=== PATIENT | female | born 1945 | race Caucasian/White ===

== ENCOUNTER 2016-05-29 12:38 | Inpatient (IN) | payer MEDICARE ==
[2016-05-29] MEDS ORDERED: SODIUM CHLORIDE 0.9% 1,000 ML IV STA (14:37)
[2016-05-29] MEDS ORDERED: methylPREDNISolone SOD SUCCI 125 MG/2 ML VIAL IV STA (14:37)
[2016-05-29] MEDS ORDERED: IPRATROPIUM-ALBUTEROL 3 ML NEB INHALATION STA (14:37)
--- NOTE | 2016-05-29 15:33 | ED ---
SOB HPI - General Chief Complaint: Shortness of Breath Stated Complaint: SOB Time Seen by Provider: 05/29/16 14:21 Source: patient Mode of arrival: wheelchair Limitations: no limitations - History of Present Illness Initial Comments: Patient is a 70-year-old female with history of tobacco abuse presenting with shortness of breath. Patient states she's been having cough, congestion or shortness of breath for the past few days. Patient states it started with a runny nose over the past month. Patient has not been told she has asthma or COPD. Patient does not have any breathing treatments or steroids that she's been trying. Patient denies any recent antibiotics. 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 She denies report of flu at facility. Patient denies her flu vaccination. Patient admits to having her pneumonia vaccination. Patient denies fever, chills, chest pain, nausea, vomiting or diarrhea. - Related Data Home Medications Medication Instructions Recorded Confirmed Pravastatin Sodium [Pravachol] 40 mg PO DAILY 03/29/15 05/29/16 Lisinopril [Zestril] 2.5 mg PO DAILY 05/29/16 05/29/16 Naproxen 500 mg PO AC-BID 05/29/16 05/29/16 Sertraline [Zoloft] 50 mg PO DAILY 05/29/16 05/29/16 guaiFENesin [Mucinex] 600 mg PO Q12H PRN 05/29/16 05/29/16 Allergies Allergy/AdvReac Type Severity Reaction Status Date / Time No Known Allergies Allergy Verified 05/29/16 14:32 Review of Systems ROS Statement: Those systems with pertinent positive or pertinent negative responses have been documented in the HPI. Constitutional: No fever and no chills. HENT: +congestion, +rhinorrhea and no sore throat. Eyes: No discharge and no redness. Respiratory: +cough and +shortness of breath. Cardiovascular: No chest pain and no palpitations. Gastrointestinal: No nausea, no vomiting, no abdominal pain and no diarrhea. Genitourinary: No dysuria and no hematuria. Musculoskeletal: No back pain and no arthralgias. Skin: No pallor and no rash. Neurological: No dizziness and No headaches. ROS Other: All systems not noted in ROS Statement are negative. Past Medical History Past Medical History: Hyperlipidemia, Hypertension Additional Past Medical History / Comment(s): sciatica History of Any Multi-Drug Resistant Organisms: None Reported Past Surgical History: Hysterectomy Past Psychological History: No Psychological Hx Reported Smoking Status: Current every day smoker Past Alcohol Use History: None Reported Past Drug Use History: None Reported General Exam - General Exam Comments Initial Comments: Constitutional: Patient appears well-developed and well-nourished. No distress. Head: Normocephalic and atraumatic. Eyes: Conjunctivae and EOM are normal. Right eye exhibits no discharge. Left eye exhibits no discharge. No scleral icterus. Neck: Normal range of motion. Neck supple. Cardiovascular: Regular rate and rhythm. No murmur heard. Pulmonary/Chest: Patient with diffuse coarse wheezing throughout with a prolonged expiration phase. No crackles appreciated. Pulse ox at bedside 90% on room air. Abdominal: Soft. No distension. There is no tenderness. There is no rebound and no guarding. Musculoskeletal: Normal range of motion. No edema or tenderness. Neurological: Patient alert and oriented to person, place, and time. Skin: Skin is warm and dry. Not diaphoretic. Nursing notes and vitals reviewed. Limitations: no limitations Course Vital Signs 05/29/16 05/29/16 05/29/16 13:14 15:05 15:21 Temperature 97.8 F Pulse Rate 104 H 78 Respiratory 20 16 17 Rate Blood Pressure 112/73 140/86 O2 Sat by Pulse 90 L 91 L Oximetry 05/29/16 05/29/16 05/29/16 15:25 15:45 17:02 Temperature Pulse Rate 72 93 Respiratory Rate Blood Pressure O2 Sat by Pulse 78 L Oximetry 05/29/16 19:01 Temperature 97.4 F L Pulse Rate 79 Respiratory 20 Rate Blood Pressure 118/60 O2 Sat by Pulse 95 Oximetry Medical Decision Making - Medical Decision Making Patient is a 70-year-old female presenting with shortness of breath, congestion , cough for several days. Patient uses one pack a day of cigarettes. Patient was treated with breathing treatments and steroids. Laboratory pulse ox after was 75% for which oxygen was applied. CBC, BMP, unremarkable. Chest x-ray shows hyperinflated lungs concerning for COPD. Patient was resting comfortably in bed. Course of stay improved on oxygen. Denies pain. Discussed physical exam and diagnostic tests with patient. Questions answered and patient is agreeable to staying in the hospital. Discussed H&P and pertinent diagnostic tests with admitting physician who agrees with plan and accepts admission of patient. - Lab Data Result diagrams: 05/29/16 15:26 05/29/16 15:26 Lab Results 05/29/16 05/29/16 05/29/16 Range/Units 15:26 15:26 15:26 WBC 9.4 (3.8-10.6) k/uL RBC 5.35 (3.80-5.40) m/uL Hgb 16.7 H (11.4-16.0) gm/dL Hct 50.4 H (34.0-46.0) % MCV 94.3 (80.0-100.0) fL MCH 31.3 (25.0-35.0) pg MCHC 33.2 (31.0-37.0) g/dL RDW 12.8 (11.5-15.5) % Plt Count 213 (150-450) k/uL Neutrophils % (Manual) 77.0 % Lymphocytes % (Manual) 20.0 % Monocytes % (Manual) 3.0 % Neutrophils # (Manual) 7.2 (1.3-7.7) k/uL Lymphocytes # (Manual) 1.9 (1.0-4.8) k/uL Monocytes # (Manual) 0.3 (0-1.0) k/uL Nucleated RBCs 0 (0-0) /100 WBC Manual Slide Review Performed Reactive Lymphocytes Present Sodium 135 L (137-145) mmol/L Potassium 4.1 (3.5-5.1) mmol/L Chloride 98 (98-107) mmol/L Carbon Dioxide 26 (22-30) mmol/L Anion Gap 11 mmol/L BUN 19 H (7-17) mg/dL Creatinine 0.57 (0.52-1.04) mg/dL Est GFR (MDRD) Af Amer >60 (>60 ml/min/1.73 sqM) Est GFR (MDRD) Non-Af >60 (>60 ml/min/1.73 sqM) Glucose 124 H (74-99) mg/dL Plasma Lactic Acid Max 1.1 (0.7-2.0) mmol/L Calcium 9.1 (8.4-10.2) mg/dL Magnesium 2.1 (1.6-2.3) mg/dL Influenza Type A RNA (Not Detectd) Influenza Type B (PCR) (Not Detectd) 05/29/16 Range/Units 15:31 WBC (3.8-10.6) k/uL RBC (3.80-5.40) m/uL Hgb (11.4-16.0) gm/dL Hct (34.0-46.0) % MCV (80.0-100.0) fL MCH (25.0-35.0) pg MCHC (31.0-37.0) g/dL RDW (11.5-15.5) % Plt Count (150-450) k/uL Neutrophils % (Manual) % Lymphocytes % (Manual) % Monocytes % (Manual) % Neutrophils # (Manual) (1.3-7.7) k/uL Lymphocytes # (Manual) (1.0-4.8) k/uL Monocytes # (Manual) (0-1.0) k/uL Nucleated RBCs (0-0) /100 WBC Manual Slide Review Reactive Lymphocytes Sodium (137-145) mmol/L Potassium (3.5-5.1) mmol/L Chloride (98-107) mmol/L Carbon Dioxide (22-30) mmol/L Anion Gap mmol/L BUN (7-17) mg/dL Creatinine (0.52-1.04) mg/dL Est GFR (MDRD) Af Amer (>60 ml/min/1.73 sqM) Est GFR (MDRD) Non-Af (>60 ml/min/1.73 sqM) Glucose (74-99) mg/dL Plasma Lactic Acid Max (0.7-2.0) mmol/L Calcium (8.4-10.2) mg/dL Magnesium (1.6-2.3) mg/dL Influenza Type A RNA Not Detected (Not Detectd) Influenza Type B (PCR) Not Detected (Not Detectd) Rate 82. NSR. No ST-T wave changes. [place] internal normal . QRS interval normal. QTc duration normal. Disposition Clinical Impression: Hypoxia Disposition: ADMITTED IP TO THIS HOSP Referrals: Sara Spencer MD [Primary Care Provider] - 1-2 days Decision to Admit Reason: Admit from EC
[2016-05-29 15:36] LABS: Aty Lym Flag Slight; CHCM 34.1; HCT 50.4 % (34.0-46.0); HDW 2.66; HGB 16.7 gm/dL (11.4-16.0); MCH 31.3 pg (25.0-35.0); MCHC 33.2 g/dL (31.0-37.0); MCV 94.3 fL (80.0-100.0); Mean Platelet Volume 7.6; RBC 5.35 m/uL (3.80-5.40); RDW 12.8 % (11.5-15.5); WBC 9.4 k/uL (3.8-10.6); WBC (Perox) 9.34
[2016-05-29 15:46] LABS: Anion Gap 11 mmol/L; Blood Urea Nitrogen 19 mg/dL (7-17); Calcium 9.1 mg/dL (8.4-10.2); Carbon Dioxide 26 mmol/L (22-30); Chloride 98 mmol/L (98-107); Glucose 124 mg/dL (74-99); Magnesium 2.1 mg/dL (1.6-2.3); Non-African American GFR(MDRD) >60 (>60 ml/min/1.73 sqM); Potassium 4.1 mmol/L (3.5-5.1); Sodium 135 mmol/L (137-145)
[2016-05-29 15:59] LABS: Add Differential Manual Differential
[2016-05-29 16:02] LABS: Nucleated Red Blood Cells 0 /100 WBC (0-0)
[2016-05-29 16:04] LABS: Manual Review Performed; Reactive Lymphocytes Present; Total Cells Counted 100
--- NOTE | 2016-05-29 16:39 | XR ---
EXAMINATION TYPE: XR chest 2V DATE OF EXAM: 05/29/2016 4:30 PM COMPARISON: 03/29/2015 HISTORY: Chest pain TECHNIQUE: Frontal and lateral views of the chest are obtained. FINDINGS: There is pulmonary hyperinflation and flattening of the diaphragm. There is coarsening of interstitial markings. There are no hilar masses. There is no pleural effusion. IMPRESSION: COPD and pulmonary fibrosis. No significant change compared to old exam. Normal heart.
[2016-05-29] MEDS ORDERED: NALOXONE 0.4 MG/ML 1 ML VIAL IV PRN (18:58)
[2016-05-29] MEDS ORDERED: SODIUM CHLORIDE 0.9% 1,000 ML IV ONE (18:58)
[2016-05-29] MEDS ORDERED: DOXYCYCLINE 100 MG in SODIUM CHLORIDE 0.9% 100 ML IVPB ONE (19:01)
[2016-05-29 20:38] VITALS: BMI 20.1
[2016-05-29] MEDS ORDERED: MELATONIN 5 MG TABLET PO SCH (22:00)
[2016-05-29] MEDS: NICOTINE 14MG/24HR PATCH TRANSDERM SCH (22:10)
[2016-05-29] MEDS: methylPREDNISolone SOD SUCCI 40 MG/ML 1 ML VIAL IV SCH (23:26)
[2016-05-29] MEDS: MELATONIN 5 MG TABLET PO PRN (23:27)
[2016-05-30] MEDS: methylPREDNISolone SOD SUCCI 40 MG/ML 1 ML VIAL IV SCH ×4 (05:37→22:47)
[2016-05-30] MEDS: IPRATROPIUM-ALBUTEROL 3 ML NEB INHALATION PRN ×3 (07:20→19:45)
[2016-05-30] MEDS: NICOTINE 14MG/24HR PATCH TRANSDERM SCH (10:34)
[2016-05-30 11:50] LABS: Glucose,Whole Blood 150 mg/dL (75-99)
[2016-05-30] MEDS ORDERED: guaiFENesin 600 MG TABLET.ER PO PRN (12:41)
--- NOTE | 2016-05-30 13:55 | P.HPIM ---
History of Present Illness H&P Date: 05/30/16 Chief Complaint: Shortness of breath Patient is a 70-year-old female who presented to [facility] emergency room with a chief complaint of worsening shortness of breath Patient was evaluated in the emergency room, preliminary diagnosis was acute exacerbation of chronic obstructive pulmonary disease She was started on IV antibiotic, IV steroids, and inhaled bronchodilators she was admitted to medical floor for further evaluation and treatment Patient has a lifelong history of smoking. She still smokes she was started on nicotine patch on admission. She denies ever being diagnosed with COPD or emphysema in the past she said she had previous episodes of bronchitis she states that she has seen Dr. Castanon rope walker in the past several years ago. Her primary care physician is Dr. Ruben Spencer. Past Medical History Past Medical History: Hyperlipidemia, Hypertension Additional Past Medical History / Comment(s): sciatica History of Any Multi-Drug Resistant Organisms: None Reported Past Surgical History: Hysterectomy Past Psychological History: No Psychological Hx Reported Smoking Status: Current every day smoker Past Alcohol Use History: None Reported Past Drug Use History: None Reported Medications and Allergies Home Medications Medication Instructions Recorded Confirmed Type Pravastatin Sodium [Pravachol] 40 mg PO DAILY 03/29/15 05/29/16 History Lisinopril [Zestril] 2.5 mg PO DAILY 05/29/16 05/29/16 History Naproxen 500 mg PO AC-BID 05/29/16 05/29/16 History Sertraline [Zoloft] 50 mg PO DAILY 05/29/16 05/29/16 History guaiFENesin [Mucinex] 600 mg PO Q12H PRN 05/29/16 05/29/16 History Allergies Allergy/AdvReac Type Severity Reaction Status Date / Time No Known Allergies Allergy Verified 05/29/16 14:32 Physical Exam Vitals: Vital Signs Temp Pulse Pulse Resp BP BP Pulse Ox 05/30/16 11:25 76 05/30/16 11:13 76 05/30/16 08:00 67 16 05/30/16 07:36 70 05/30/16 07:21 66 95 05/30/16 07:00 97.6 F 67 16 138/72 96 05/29/16 22:21 98 F 73 16 107/65 95 05/29/16 20:26 97 F L 88 17 122/75 94 L 05/29/16 19:01 97.4 F L 79 20 118/60 95 Intake and Output 05/29/16 05/30/16 05/30/16 22:59 06:59 14:59 Intake Total 50 600 240 Balance 50 600 240 Intake: Intake, IV Titration 50 450 Amount Doxycycline 100 mg In 100 Sodium Chloride 0.9% 100 ml @ 100 mls/hr IVPB ONCE ONE Rx#:[id number] Sodium Chloride 0.9% 1, 50 350 000 ml @ 50 mls/hr IV . Q20H ONE Rx#:[id number] Oral 150 240 Other: # Voids 1 1 Weight 49.895 kg 49.895 kg Patient Weight 05/31/16 06:59 Weight 49.895 kg In general patient is alert and oriented 3 in no apparent distress HEENT head normocephalic and atraumatic Neck is supple no JVD no goiter no lymphadenopathy Chest exam reveals a few scattered crackles with mild wheezing, there is prolongation in expiratory phase Cardiac exam reveals regular heart sounds S1 and S2 no gallops no murmurs Abdomen is soft nontender no organomegaly Extremity exam reveals no edema no cyanosis or clubbing Neurological examination reveals no gross focal deficits Results CBC & Chem 7: 05/29/16 15:26 05/29/16 15:26 Labs: Abnormal Lab Results - Last 24 Hours (Table) 05/30/16 Range/Units 11:48 POC Glucose (mg/dL) 150 H (75-99) mg/dL Thrombosis Risk Factor Assmnt - Choose All That Apply Each Factor Represents 1 point: Abnormal pulmonary function (COPD) Each Risk Factor Represents 2 Points: Age 61-74 years Thrombosis Risk Factor Assessment Total Risk Factor Score: 3 Thrombosis Risk Factor Assessment Level: Moderate Risk Assessment and Plan Plan: #1 shortness of breath with hypoxia most likely diagnosis is acute exacerbation of chronic obstructive pulmonary disease patient was started on IV antibiotic IV steroids and inhaled bronchodilators, will continue with same, pulmonary consult was requested. Will check d-dimer to rule out pulmonary embolism due to degree of shortness of breath and hypoxia. #2 tobacco abuse patient was counseled in length in regard to smoking cessation counseling more than 10 minutes #3 underlying history of hypertension #4 underlying history of hyperlipidemia #5 for DVT prophylaxis patient was started on Lovenox 40 mg subcu once daily for GI prophylaxis patient was started on Pepcid
[2016-05-30] MEDS: ENOXAPARIN 40 MG/0.4 ML SYRINGE SQ SCH (14:57)
[2016-05-30] MEDS: LISINOPRIL 2.5 MG TAB PO SCH (14:59)
[2016-05-30] MEDS: SERTRALINE 50 MG TAB PO SCH (14:59)
[2016-05-30] MEDS: FAMOTIDINE 20 MG TAB PO SCH (15:24)
[2016-05-30] MEDS ORDERED: NAPROXEN 250 MG TAB PO PRN (15:37)
[2016-05-30 17:03] LABS: Glucose,Whole Blood 179 mg/dL (75-99)
[2016-05-30] MEDS ORDERED: NAPROXEN 250 MG TAB PO SCH (17:30)
[2016-05-30] MEDS: INSULIN LISPRO (humaLOG) 300 UNIT/3 ML VIAL SQ SCH ×2 (17:44→22:32)
[2016-05-30 20:03] LABS: Glucose,Whole Blood 156 mg/dL (75-99)
[2016-05-30] MEDS: PRAVASTATIN SODIUM 40 MG TAB PO SCH (22:31)
[2016-05-31] MEDS: MELATONIN 5 MG TABLET PO PRN ×2 (00:52→22:13)
[2016-05-31] MEDS: methylPREDNISolone SOD SUCCI 40 MG/ML 1 ML VIAL IV SCH ×4 (05:56→23:13)
[2016-05-31 06:59] LABS: Glucose,Whole Blood 124 mg/dL (75-99)
[2016-05-31] MEDS: IPRATROPIUM-ALBUTEROL 3 ML NEB INHALATION PRN ×4 (07:34→19:24)
[2016-05-31] MEDS: INSULIN LISPRO (humaLOG) 300 UNIT/3 ML VIAL SQ SCH ×4 (07:47→20:59)
[2016-05-31] MEDS: ENOXAPARIN 40 MG/0.4 ML SYRINGE SQ SCH (07:48)
[2016-05-31] MEDS: NICOTINE 14MG/24HR PATCH TRANSDERM SCH (07:48)
[2016-05-31] MEDS: LISINOPRIL 2.5 MG TAB PO SCH (07:48)
[2016-05-31] MEDS: SERTRALINE 50 MG TAB PO SCH (07:48)
[2016-05-31] MEDS: FAMOTIDINE 20 MG TAB PO SCH (07:48)
[2016-05-31 07:53] LABS: Basophils # (A) 0.1 k/uL (0-0.2); Basophils % (A) 1 %; CH 31.7; CHCM 32.8; Eosinophils % (A) 0 %; HCT 46.7 % (34.0-46.0); HDW 2.77; HGB 14.7 gm/dL (11.4-16.0); Luc # (Auto) 0.34; Luc % (Auto) 3; Lymphocytes # (A) 1.3 k/uL (1.0-4.8); Lymphocytes % (A) 9 %; MCH 30.6 pg (25.0-35.0); MCHC 31.4 g/dL (31.0-37.0); MCV 97.2 fL (80.0-100.0); Mean Platelet Volume 8.6; Monocytes # (A) 0.5 k/uL (0-1.0); Monocytes % (A) 4 %; Neutrophils # (A) 11.3 k/uL (1.3-7.7); Neutrophils % (A) 84 %; RBC 4.81 m/uL (3.80-5.40); RDW 13.1 % (11.5-15.5); WBC 13.5 k/uL (3.8-10.6); WBC (Perox) 13.39
[2016-05-31 08:16] LABS: ALT 37 U/L (9-52); AST 24 U/L (14-36); Alkaline Phosphatase 73 U/L (38-126); Anion Gap 7 mmol/L; Blood Urea Nitrogen 23 mg/dL (7-17); Calcium 9.3 mg/dL (8.4-10.2); Carbon Dioxide 28 mmol/L (22-30); Chloride 106 mmol/L (98-107); Glucose 124 mg/dL (74-99); Non-African American GFR(MDRD) >60 (>60 ml/min/1.73 sqM); Potassium 4.9 mmol/L (3.5-5.1); Sodium 141 mmol/L (137-145); Total Bilirubin 0.3 mg/dL (0.2-1.3); Total Protein 6.2 g/dL (6.3-8.2)
[2016-05-31] MEDS ORDERED: AZITHROMYCIN 500 MG in SODIUM CHLORIDE 0.9% 250 ML IVPB SCH (09:00)
--- NOTE | 2016-05-31 10:49 | P.PN ---
Subjective Patient presented with worsening shortness of breath and found to have evidence of acute COPD exacerbation. She started on IV steroids. Pulmonary service has been consulted. Patient has noted some improvement in her breathing. She denies any chest pain. Denies any nausea or vomiting. Denies a bowel movement changes or urinary symptoms. Objective - Vital Signs Vital signs: Vital Signs Temp 97.7 F 05/31/16 07:00 Pulse 72 05/31/16 07:35 Resp 17 05/31/16 07:00 BP 151/83 05/31/16 07:00 Pulse Ox 98 05/31/16 07:00 Intake & Output 05/30/16 05/31/16 05/31/16 18:59 06:59 18:59 Intake Total 480 20 240 Balance 480 20 240 Weight 49.895 kg Intake: Oral 480 20 240 Other: # Voids 2 - Exam Head normocephalic Neck supple Lungs few scattered wheezes noted bilaterally Heart regular rate and rhythm S1-S2, no rub or gallop Abdomen is soft nontender nondistended positive bowel sounds no hepatosplenomegaly Extremities no edema Neuro alert and orientated to 3 - Labs CBC & Chem 7: 05/31/16 07:20 05/31/16 07:20 Labs: Abnormal Lab Results - Last 24 Hours (Table) 05/30/16 05/30/16 05/30/16 Range/Units 11:48 14:54 16:59 WBC (3.8-10.6) k/uL Hct (34.0-46.0) % Neutrophils # (1.3-7.7) k/uL D-Dimer 0.63 H (<0.60) mg/L FEU BUN (7-17) mg/dL Glucose (74-99) mg/dL POC Glucose (mg/dL) 150 H 179 H (75-99) mg/dL Total Protein (6.3-8.2) g/dL Albumin (3.5-5.0) g/dL 05/30/16 05/31/16 05/31/16 Range/Units 20:02 06:58 07:20 WBC 13.5 H (3.8-10.6) k/uL Hct 46.7 H (34.0-46.0) % Neutrophils # 11.3 H (1.3-7.7) k/uL D-Dimer (<0.60) mg/L FEU BUN (7-17) mg/dL Glucose (74-99) mg/dL POC Glucose (mg/dL) 156 H 124 H (75-99) mg/dL Total Protein (6.3-8.2) g/dL Albumin (3.5-5.0) g/dL 05/31/16 Range/Units 07:20 WBC (3.8-10.6) k/uL Hct (34.0-46.0) % Neutrophils # (1.3-7.7) k/uL D-Dimer (<0.60) mg/L FEU BUN 23 H (7-17) mg/dL Glucose 124 H (74-99) mg/dL POC Glucose (mg/dL) (75-99) mg/dL Total Protein 6.2 L (6.3-8.2) g/dL Albumin 3.4 L (3.5-5.0) g/dL Microbiology - Last 24 Hours (Table) 05/30/16 06:49 Blood Culture - Preliminary Blood No Growth after 24 hours 05/30/16 07:28 Gram Stain - Preliminary Sputum Assessment and Plan Plan: 1. Acute hypoxic respiratory failure secondary to COPD exacerbation and bronchitis 2. Acute COPD exacerbation continue IV steroids and bronchodilators 3. Acute tracheobronchitis: No evidence of pneumonia on chest x-ray. Add Rocephin and azithromycin 4. Essential hypertension: Blood pressure stable continue current medications 5. Hyperlipidemia 6. Nicotine dependence: Discussed smoking cessation for greater than 5 minutes. Continue nicotine patch 7. Encouraged patient to increase activity DVT prophylaxis Lovenox and GI prophylaxis Pepcid
[2016-05-31 11:07] LABS: Hemoglobin A1C 5.8 % (4.2-6.1)
[2016-05-31 11:53] LABS: Glucose,Whole Blood 119 mg/dL (75-99)
[2016-05-31 16:59] LABS: Glucose,Whole Blood 128 mg/dL (75-99)
--- NOTE | 2016-05-31 18:45 | CONS ---
DATE OF CONSULTATION: 05/31/2016 REASON FOR CONSULTATION: Shortness of breath and wheezing. HISTORY OF PRESENTING ILLNESS: Ms. Nalini Barbour is a pleasant 70-year-old female who sees Dr. Sara Spencer for primary care activity. For the last 4 weeks she has been having increasing shortness of breath. Her symptoms started with upper respiratory process with nasal dripping and congestion leading to increasing shortness of breath and severe wheezing 1 to 2 days prior to coming into hospital. Due to persistent issues, she decided to come into the emergency department. She was seen, evaluated, examined and subsequently admitted to the hospital. Of note that patient has been complaining of some left-sided chest tightness as well. Her past medical history is significant for: 1. Dyslipidemia. 2. Hypertension. 3. Mood disorder. 4. Depression. Past surgical history is significant for hysterectomy. ALLERGIES: NO KNOWN DRUG ALLERGY. Medications at home include: 1. Mucinex as needed 2 times a day. 2. Zoloft 50 mg daily. 3. Naprosyn 500 2 times a day. 4. Zestril 2.5 mg daily. 5. Pravachol 40 mg daily. Current medications while in the hospital include: 1. DuoNeb unit dose updraft 4 times a day. 2. Zithromax 500 mg. 3. Rocephin 1 gram daily. 4. Lovenox 40 mg daily. 5. Pepcid 20 mg daily. 6. Mucinex 600 mg q.12. 7. Humalog sliding scale. 8. Zestril 2.5 mg a day. 9. Melatonin. 10. Solu-Medrol 40 q.6. 11. Pravastatin. 12. Zoloft. 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 CARDIORESPIRATORY: As dictated above. Denies any hemoptysis. GI/: Otherwise unremarkable and noncontributory. MUSCULOSKELETAL/DERMATOLOGICAL: Negative. FAMILY HISTORY AND SOCIAL HISTORY: Extensive history of smoking and nicotine use. Smokes about 1 pack per day On examination, most recent vitals include blood pressure 150/80, respiratory rate 17, pulse 76, temperature 98, saturation 98% on 2 L. HEENT: Atraumatic, normocephalic. Pharynx is clear. Narrow pharyngeal opening is present. NECK: Supple without lymphadenopathy, jugular venous distention or carotid bruit. LUNGS: Bilateral inspiratory and expiratory wheezing are present. HEART: Regular rate, rhythm. S1, S2 audible. ABDOMEN: Soft. No rebound or rigidity. EXTREMITIES: Plus one peripheral pulses. NEUROLOGICAL EXAMINATION: Otherwise awake and alert. Labs reviewed. Medications reviewed. Influenza A and B both negative. LFTs are within normal limits. Glucose 120. BUN and creatinine 19 and 0.57. Chemistry otherwise within normal limits. White cell count 13,500, hemoglobin 14, hematocrit 46, platelet count 261,000. The EKG performed in the emergency department revealed normal sinus rhythm. Some non-specific anterior segment changes were seen. The chest x-ray performed in the emergency department was reviewed and compared with the prior x-ray: COPD-like changes; otherwise unremarkable. IMPRESSION: 1. Acute chronic obstructive pulmonary disease exacerbation. 2. Purulent tracheobronchitis. 3. Left chest tightness, likely related to acute asthma. Tightness seems to be a bit resolving now. 4. Extensive history of smoking and nicotine use. 5. Hypertension, hypertensive cardiovascular disease. 6. Dyslipidemia. PLAN: To continue steroids, antibiotics. Continue breathing treatments. Maintain patient on DVT and peptic ulcer disease prophylaxis. Patient has been counseled about smoking cessation. Will follow clinical course closely. Further recommendations pending. Plan of care as per clinical response of the patient. Patient has a recent history of left chest pain. Would recommend checking a D-dimer; if elevated, consider doing a CT scan of the chest. Will follow. '
[2016-05-31] MEDS ORDERED: ACETAMINOPHEN TAB 500 MG TAB PO STA (19:34)
[2016-05-31 20:19] LABS: Glucose,Whole Blood 157 mg/dL (75-99)
[2016-05-31] MEDS ORDERED: ACETAMINOPHEN TAB 500 MG TAB PO PRN (20:58)
[2016-05-31] MEDS: PRAVASTATIN SODIUM 40 MG TAB PO SCH (20:59)
[2016-06-01 06:59] LABS: Glucose,Whole Blood 122 mg/dL (75-99)
[2016-06-01] MEDS: IPRATROPIUM-ALBUTEROL 3 ML NEB INHALATION PRN ×4 (07:11→19:01)
[2016-06-01] MEDS: methylPREDNISolone SOD SUCCI 40 MG/ML 1 ML VIAL IV SCH ×4 (07:31→23:40)
[2016-06-01 07:36] VITALS: TEMP 97.9
[2016-06-01] MEDS: INSULIN LISPRO (humaLOG) 300 UNIT/3 ML VIAL SQ SCH ×4 (08:40→21:12)
[2016-06-01] MEDS: AZITHROMYCIN 500 MG TAB PO SCH (08:43)
[2016-06-01] MEDS: SERTRALINE 50 MG TAB PO SCH (08:44)
[2016-06-01] MEDS: FAMOTIDINE 20 MG TAB PO SCH (08:44)
[2016-06-01] MEDS: ENOXAPARIN 40 MG/0.4 ML SYRINGE SQ SCH (08:44)
[2016-06-01] MEDS: NICOTINE 14MG/24HR PATCH TRANSDERM SCH (08:44)
[2016-06-01] MEDS: LISINOPRIL 2.5 MG TAB PO SCH (08:44)
[2016-06-01 09:51] LABS: Basophils % (A) 0 %; CH 31.5; CHCM 32.7; Eosinophils % (A) 0 %; HCT 46.1 % (34.0-46.0); HDW 2.71; Luc # (Auto) 0.15; Luc % (Auto) 1; Lymphocytes # (A) 1.1 k/uL (1.0-4.8); Lymphocytes % (A) 10 %; MCH 31.4 pg (25.0-35.0); MCHC 32.4 g/dL (31.0-37.0); MCV 96.7 fL (80.0-100.0); Mean Platelet Volume 7.3; Monocytes # (A) 0.4 k/uL (0-1.0); Monocytes % (A) 3 %; Neutrophils # (A) 9.6 k/uL (1.3-7.7); Neutrophils % (A) 85 %; RBC 4.77 m/uL (3.80-5.40); RDW 12.8 % (11.5-15.5); WBC 11.2 k/uL (3.8-10.6); WBC (Perox) 11.74
[2016-06-01 10:07] LABS: ALT 40 U/L (9-52); AST 27 U/L (14-36); Alkaline Phosphatase 71 U/L (38-126); Anion Gap 9 mmol/L; Blood Urea Nitrogen 20 mg/dL (7-17); Calcium 9.2 mg/dL (8.4-10.2); Carbon Dioxide 29 mmol/L (22-30); Chloride 103 mmol/L (98-107); Glucose 148 mg/dL (74-99); Non-African American GFR(MDRD) >60 (>60 ml/min/1.73 sqM); Potassium 4.4 mmol/L (3.5-5.1); Sodium 141 mmol/L (137-145); Total Bilirubin 0.4 mg/dL (0.2-1.3); Total Protein 6.3 g/dL (6.3-8.2)
[2016-06-01 12:01] LABS: Glucose,Whole Blood 128 mg/dL (75-99)
[2016-06-01 17:24] LABS: Glucose,Whole Blood 123 mg/dL (75-99)
--- NOTE | 2016-06-01 18:14 | P.PN ---
Subjective Principal diagnosis: Acute exacerbation of COPD Patient is a 70-year-old female admitted with severe shortness of breath and evidence of COPD exacerbation she was started on IV steroids and inhaled bronchodilators she is requiring oxygen she is followed by pulmonary consult Objective - Vital Signs Vital signs: Vital Signs Temp 97.9 F 06/01/16 15:00 Pulse 84 06/01/16 15:17 Resp 16 06/01/16 15:00 BP 164/82 06/01/16 15:00 Pulse Ox 92 L 06/01/16 15:00 Intake & Output 05/31/16 06/01/16 06/01/16 18:59 06:59 18:59 Intake Total 1425 1290 770 Balance 1425 1290 770 Intake: IV 50 50 cefTRIAXone 1,000 mg In 50 50 Sodium Chloride 0.9% 50 ml @ 100 mls/hr IVPB Q24HR LEONARDO Rx#:[id number] Intake, IV Titration 225 Amount Azithromycin 500 mg In 125 Sodium Chloride 0.9% 250 ml @ 125 mls/hr IVPB DAILY LEONARDO Rx#:[id number] cefTRIAXone 1,000 mg In 100 Sodium Chloride 0.9% 50 ml @ 100 mls/hr IVPB Q24HR LEONARDO Rx#:[id number] Oral 1200 1240 720 Other: Voiding Method Toilet Toilet # Voids 3 1 1 - Exam In general patient is alert and oriented 3 in no apparent distress HEENT head normocephalic and traumatic Neck is supple no JVD no goiter no lymphadenopathy Chest exam reveals a few scattered crackles with wheezing, and prolonged expiratory phase Cardiac exam reveals regular heart sounds no murmurs Abdomen is soft nontender no organomegaly Extremity exam reveals no edema no cyanosis or clubbing - Labs CBC & Chem 7: 06/01/16 08:39 06/01/16 08:39 Labs: Abnormal Lab Results - Last 24 Hours (Table) 05/31/16 06/01/16 06/01/16 Range/Units 20:13 06:57 08:39 WBC 11.2 H (3.8-10.6) k/uL Hct 46.1 H (34.0-46.0) % Neutrophils # 9.6 H (1.3-7.7) k/uL BUN (7-17) mg/dL Glucose (74-99) mg/dL POC Glucose (mg/dL) 157 H 122 H (75-99) mg/dL 06/01/16 06/01/16 06/01/16 Range/Units 08:39 11:59 17:23 WBC (3.8-10.6) k/uL Hct (34.0-46.0) % Neutrophils # (1.3-7.7) k/uL BUN 20 H (7-17) mg/dL Glucose 148 H (74-99) mg/dL POC Glucose (mg/dL) 128 H 123 H (75-99) mg/dL Microbiology - Last 24 Hours (Table) 05/30/16 06:49 Blood Culture - Preliminary Blood No Growth after 48 hours 05/30/16 07:28 Gram Stain - Final Sputum Sputum Culture - Final Assessment and Plan Plan: #1 shortness of breath with hypoxia most likely diagnosis is acute exacerbation of chronic obstructive pulmonary disease patient was started on IV antibiotic IV steroids and inhaled bronchodilators, will continue with same, pulmonary consult was requested. Will check d-dimer to rule out pulmonary embolism due to degree of shortness of breath and hypoxia. #2 tobacco abuse patient was counseled in length in regard to smoking cessation counseling more than 10 minutes #3 underlying history of hypertension #4 underlying history of hyperlipidemia #5 for DVT prophylaxis patient was started on Lovenox 40 mg subcu once daily for GI prophylaxis patient was started on Pepcid
[2016-06-01 20:14] LABS: Glucose,Whole Blood 179 mg/dL (75-99)
[2016-06-01] MEDS: PRAVASTATIN SODIUM 40 MG TAB PO SCH (21:12)
[2016-06-01 21:50] VITALS: RESP 18
[2016-06-02] MEDS: methylPREDNISolone SOD SUCCI 40 MG/ML 1 ML VIAL IV SCH ×2 (06:22→11:59)
[2016-06-02] MEDS: IPRATROPIUM-ALBUTEROL 3 ML NEB INHALATION PRN (06:55)
[2016-06-02 07:31] LABS: Glucose,Whole Blood 111 mg/dL (75-99)
[2016-06-02 07:44] VITALS: BP 164/91; PULSE 75
[2016-06-02 07:54] LABS: Basophils % (A) 0 %; CH 31.6; CHCM 33.2; Eosinophils % (A) 0 %; HCT 47.3 % (34.0-46.0); HGB 15.4 gm/dL (11.4-16.0); Luc # (Auto) 0.14; Luc % (Auto) 1; Lymphocytes # (A) 1.3 k/uL (1.0-4.8); Lymphocytes % (A) 11 %; MCH 31.1 pg (25.0-35.0); MCHC 32.5 g/dL (31.0-37.0); MCV 95.6 fL (80.0-100.0); Mean Platelet Volume 8.6; Monocytes # (A) 0.8 k/uL (0-1.0); Monocytes % (A) 7 %; Neutrophils # (A) 9.2 k/uL (1.3-7.7); Neutrophils % (A) 80 %; RBC 4.95 m/uL (3.80-5.40); RDW 12.8 % (11.5-15.5); WBC 11.5 k/uL (3.8-10.6); WBC (Perox) 11.93
--- NOTE | 2016-06-02 07:59 | PN ---
DATE OF SERVICE: 06/01/2016 Ms. Barbour is a 70-year-old female who was seen, evaluated, examined on the fifth floor. This patient has been having ( ) issues associated with significant shortness of breath, cough, wheezing and intermittent hypoxia related to acute COPD exacerbation. Left-sided chest pain appears to be more musculoskeletal pain as patient is not complaining of that pain anymore. His vitals are stable. Last set of vitals include blood pressure is 142/82, respiratory rate is 18, pulse 88, temperature 98, saturation 97% on 2 L oxygen. HEENT EXAMINATION: Otherwise unremarkable. NECK: Supple. LUNGS: Good air entry bilaterally with inspiratory, expiratory wheezing and rhonchi present. HEART: Regular rate and rhythm. S1 and S2 audible. ABDOMEN: Soft. No rebound or rigidity. EXTREMITIES: +1 peripheral pulses. NEUROLOGICAL EXAMINATION: Otherwise, awake and alert. Labs reviewed. Medications reviewed. Medications include DuoNeb unit dose updraft 4 times a day, Zithromax 500 mg daily, Rocephin 1 gram daily, Lovenox 40 mg daily, Pepcid 20 mg daily, also on sliding scale insulin, lisinopril and melatonin. Solu-Medrol is 40 q.6 hourly. Labs are reviewed. The white cell count is down to 11,000, hemoglobin and hematocrit 15 and 46, platelet count 308,000. Chemistry otherwise is within normal limits. Influenza A and B are negative. D-dimer was 0.63 then came down to 0.52. IMPRESSION: 1. Acute chronic obstructive pulmonary disease exacerbation. 2. Purulent tracheobronchitis. 3. Extensive history of smoking and nicotine use. 4. Left-sided chest pain likely related to musculoskeletal pain related to coughing. 5. Dyslipidemia. 6. Hypertension. PLAN AND RECOMMENDATION: Continue steroids, breathing treatments, antibiotics. Clinically, patient is slightly better. Will continue current supportive care. Hopefully in the next 24 to 48 hours ( ).
[2016-06-02] MEDS: INSULIN LISPRO (humaLOG) 300 UNIT/3 ML VIAL SQ SCH ×2 (08:08→11:58)
[2016-06-02 08:09] LABS: ALT 47 U/L (9-52); AST 27 U/L (14-36); Alkaline Phosphatase 75 U/L (38-126); Anion Gap 9 mmol/L; Blood Urea Nitrogen 20 mg/dL (7-17); Calcium 9.5 mg/dL (8.4-10.2); Carbon Dioxide 32 mmol/L (22-30); Chloride 99 mmol/L (98-107); Glucose 109 mg/dL (74-99); Non-African American GFR(MDRD) >60 (>60 ml/min/1.73 sqM); Potassium 5.2 mmol/L (3.5-5.1); Sodium 140 mmol/L (137-145); Total Bilirubin 0.4 mg/dL (0.2-1.3); Total Protein 6.4 g/dL (6.3-8.2)
[2016-06-02] MEDS: AZITHROMYCIN 500 MG TAB PO SCH (08:09)
[2016-06-02] MEDS: FAMOTIDINE 20 MG TAB PO SCH (08:09)
[2016-06-02] MEDS: NICOTINE 14MG/24HR PATCH TRANSDERM SCH (08:09)
[2016-06-02] MEDS: ENOXAPARIN 40 MG/0.4 ML SYRINGE SQ SCH (08:09)
[2016-06-02] MEDS: LISINOPRIL 2.5 MG TAB PO SCH (08:09)
[2016-06-02] MEDS: SERTRALINE 50 MG TAB PO SCH (08:09)
[2016-06-02 11:15] LABS: Glucose,Whole Blood 109 mg/dL (75-99)
--- NOTE | 2016-06-02 12:07 | PN ---
Nalini Barbour who is a 70-year-old female, seen, evaluated, and examined in followup. Clinically, patient is doing slightly better. Wheezing, cough, congestion has improved. She is tolerating activity relatively better. Her last set of vitals include blood pressure 160/90, respiratory rate 18, pulse 98, temperature 98, saturation 97% on 2 L. HEENT: Unremarkable. NECK: Supple. LUNGS: Good air entry bilaterally. HEART: Regular rate and rhythm. Abdomen is soft. NEUROLOGICAL EXAMINATION: Otherwise, awake and alert. Labs reviewed. White cell count 11,500, hemoglobin 15 and hematocrit 47, platelet count of 325,000. Sodium 140, potassium 5.2. BUN and creatinine 20 and 0.57. LFTs are within normal limits. IMPRESSION: 1. Acute chronic obstructive pulmonary disease exacerbation. 2. Purulent tracheobronchitis. 3. Left-sided chest pain resolved now, likely related to musculoskeletal pain related to above. 4. Extensive history of smoking and nicotine use. 5. ( ) Dyslipidemia. 6. Hypertension. PLAN AND RECOMMENDATION: Continue supportive care. Increase activity as tolerated. Continue breathing treatments, antibiotics and steroids may be switched to oral with possible discharge planning. Would recommend followup in outpatient setting.
--- NOTE | 2016-06-02 13:16 | P.DS ---
Providers Date of admission: 05/29/16 18:58 Expected date of discharge: 06/02/16 Attending physician: Ann-Marie Boyer Consults: 05/30/16 13:48 Consult Physician Routine Consulting Provider: Christophe Zapata Consult Reason/Comments: dyspnea Do you want consulting provider notified?: Yes Primary care physician: Sara Spencer [facility] Hospital Course: Diagnosis on discharge #1 acute exacerbation of chronic obstructive pulmonary disease #2 acute purulent bronchitis Hospital course patient is a 70-year-old female who presented to [facility] emergency room with a chief complaint of severe shortness of breath and cough, patient had evidence of acute purulent bronchitis and acute exacerbation of chronic obstructive pulmonary disease, she was started on IV antibiotic IV steroids and inhaled bronchodilators, she improved gradually, she was seen by supervisor [employer] Dr. Franz. During this admission patient had episodes of hypoxia, she was kept on oxygen, at the day of discharge her O2 level was 87% with ambulation, arrangement where made for home O2. Patient was stable for discharge on 06/02/2016 She will follow-up with Dr. Franz supervisor [employer] and with her primary care physician Dr. Ruben Spencer Plan - Discharge Summary Discharge Medication List Pravastatin Sodium [Pravachol] 40 mg PO DAILY 03/29/15 [History] Lisinopril [Zestril] 2.5 mg PO DAILY 05/29/16 [History] Naproxen 500 mg PO AC-BID 05/29/16 [History] Sertraline [Zoloft] 50 mg PO DAILY 05/29/16 [History] guaiFENesin [Mucinex] 600 mg PO Q12H PRN 05/29/16 [History] Follow up Appointment(s)/Referral(s): Sara Spencer MD [Primary Care Provider] - 1-2 days Christophe Zapata MD [STAFF PHYSICIAN] - 1 Week Activity/Diet/Wound Care/Special Instructions: patient requests flu vaccine prior to discharge
[2016-06-02] MEDS ORDERED: INFLUENZA VACCINE (3YR+) 60 MCG/0.5 ML SYRINGE IM ONE (13:43)
== END 2016-06-02 15:35 | disposition home or self-care (01) | DRG 190 ==
LOC: EC 12:38 → 5MS5E 18:58
PROVIDERS: ADMIT Internal Medicine; ATTEND Internal Medicine
DX: J44.0 Chronic obstructive pulmonary disease with (acute) lower respiratory infection (principal); J96.01 Acute respiratory failure with hypoxia; J45.901 Unspecified asthma with (acute) exacerbation; I11.9 Hypertensive heart disease without heart failure; F32.9 Major depressive disorder, single episode, unspecified; E78.5 Hyperlipidemia, unspecified; J20.9 Acute bronchitis, unspecified; F39 Unspecified mood [affective] disorder; J44.1 Chronic obstructive pulmonary disease with (acute) exacerbation; F17.200 Nicotine dependence, unspecified, uncomplicated; M54.30 Sciatica, unspecified side; R07.89 Other chest pain; Z79.899 Other long term (current) drug therapy
CPT/HCPCS: 36415; 71020; 80048; 80053; 83036; 83605; 83735; 85025; 85379; 87040; 87070; 87205; 87502; 90686; 93005; 94640; 96361; 96374; 99285

== ENCOUNTER → 2016-06-21 | Outpatient (CLI) | payer MEDICARE ==
[2016-06-21 15:30] LABS: Blood Urea Nitrogen 21 mg/dL (7-17); Non-African American GFR(MDRD) >60 (>60 ml/min/1.73 sqM)
--- NOTE | 2016-06-21 16:24 | CT ---
EXAMINATION TYPE: CT chest w con DATE OF EXAM: 06/21/2016 4:04 PM COMPARISON: Chest CT from June 20, 2015 and older exams April 09, 2015 HISTORY: Pt states of follow up for lung nodules. CT DLP: 145.6 mGycm. Automated Exposure Control for Dose Reduction was Utilized. TECHNIQUE: CT scan of the thorax is performed following with IV Contrast, patient injected with 90 m L of Omnipaque 300. FINDINGS: LUNGS: Moderate to advanced underlying emphysematous changes redemonstrated. Linear scarring in the l ingula and medial right middle lobe is redemonstrated. Along inferior aspect of linear scarring in th e lingula nodularity measures 8 x 5 mm on current study axial image 41 felt stable from prior. Findin g is presumed postinflammatory given interval stability. No new parenchymal nodule or mass is identif ied bilaterally mild bilateral apical scarring is redemonstrated. No pleural effusion or pneumothorax is seen. Tracheobronchial tree is patent. MEDIASTINUM: There are no greater than 1 cm hilar or mediastinal lymph nodes. No cardiomegaly or pe ricardial effusion is seen. OTHER: Heterogeneously dense fibroglandular tissue with scattered dystrophic calcifications is redemo nstrated. Osseous structures are demineralized. Stable small hiatal hernia is noted. IMPRESSION: Moderate to advanced emphysematous change with lingular linear scarring and slightly more nodular scarring inferiorly redemonstrated presumed postinflammatory given continued stability. No n ew mass or adenopathy is identified to suggest neoplasm.
== END | disposition home or self-care (01) ==
LOC: RADCTMAIN 15:02
PROVIDERS: ATTEND Family Medicine
DX: J43.9 Emphysema, unspecified (principal); J98.4 Other disorders of lung
CPT/HCPCS: 82565; 84520; 71260; 36415; Q9967

== ENCOUNTER → 2017-11-15 | Outpatient (CLI) | payer MEDICARE ==
--- NOTE | 2017-11-15 22:18 | CT ---
EXAMINATION TYPE: CT abdomen pelvis w con DATE OF EXAM: 11/15/2017 HISTORY: Unexpected significant weight loss of 40 pounds this year. (R 63.4) per order CT DLP: 571mGycm Automated Exposure Control for Dose Reduction was Utilized. CONTRAST: CT scan of the abdomen and pelvis is performed with IV Contrast, patient injected with 100 mL of Isov ue 300. COMPARISON: None FINDINGS: Evaluation slightly suboptimal as patient has very little intra-abdominal fat. LUNG BASES: Respiratory motion artifact degradation is present, lung bases are however grossly clear. LIVER/GB: Liver is upper limits of normal in size. PANCREAS: No significant abnormality is seen. SPLEEN: No significant abnormality is seen. ADRENALS: No significant abnormality is seen. KIDNEYS:. Simple appearing 2.7 cm cyst posteriorly lower pole of the left kidney series 6 image 25. T here is subcentimeter low dense lesion anteriorly upper pole of the right kidney series 6 image 15 to o small to further characterize but presumably benign. BOWEL: Oral contrast reaches the level of cecum. There is no suspicious small or large bowel dilatati on. Diverticula are seen in the left and sigmoid colon. There is no CT evidence for acute diverticuli tis. Normal-appearing appendix is seen descending from cecum in the right pelvis UTERUS/ADNEXA: Uterus is surgically absent or markedly atrophic in appearance. LYMPH NODES: No greater than 1cm abdominal or pelvic lymph nodes are appreciated. OSSEOUS STRUCTURES: Slight scoliotic curvature is present. Moderate joint space loss of both hips is seen. OTHER: Rkoe-nz-bbouavyy calcified plaque distal abdominal aorta is noted. IMPRESSION: No suspicious mass or adenopathy identified to suggest neoplasm.
== END | disposition home or self-care (01) ==
LOC: RADCTMAIN 17:27
PROVIDERS: ATTEND Family Medicine
DX: R63.4 Abnormal weight loss (principal)
CPT/HCPCS: 82565; 84520; 74177; 36415; Q9967

== ENCOUNTER → 2018-01-04 | Outpatient (CLI) | payer MEDICARE ==
--- NOTE | 2018-01-05 13:45 | MM ---
Reason for exam: screening (asymptomatic). Last mammogram was performed 2 years and 6 months ago. History: Patient is postmenopausal. Cyst aspiration of the left breast. Excisional biopsy of the left breast. Excisional biopsy of the right breast. Took estrogen for 5 years 8 months. Physical Findings: A clinical breast exam by your physician is recommended on an annual basis and results should be correlated with mammographic findings. MG 3D Screening Mammo W/Cad Bilateral CC and MLO view(s) were taken. Prior study comparison: June 20, 2015, bilateral MG screening mammo w CAD. June 05, 2014, bilateral MG screening mammo w CAD. The breast tissue is heterogeneously dense. This may lower the sensitivity of mammography. Finding: There are typically benign dystrophic, round calcifications in both breasts, greater in the right breast. There is no discrete abnormality. ASSESSMENT: Benign, BI-RAD 2 RECOMMENDATION: Routine screening mammogram of both breasts in 1 year.
== END | disposition home or self-care (01) ==
LOC: RADMAMWWP 08:19
PROVIDERS: ATTEND Family Medicine
DX: Z12.31 Encounter for screening mammogram for malignant neoplasm of breast (principal)
CPT/HCPCS: 77063; 77067

== ENCOUNTER → 2019-04-03 | Outpatient (CLI) | payer MEDICARE ==
--- NOTE | 2019-04-03 13:47 | CTL ---
EXAMINATION TYPE: CT Low Dose Lung DATE OF EXAM ORDERED: 04/03/2019 HISTORY: Long-term tobacco use. Lung cancer screening CT DLP: 39.[address] CTDI: 1.1 mGy Automated exposure control for dose reduction was used. SCREENING VISIT: Initial study COMPARISON: Prior chest CT June 21, 2016 and older CTs TECHNIQUE: Low dose computed tomography scan was performed through the chest at 1 mm thick sections a nd reconstructed images in the coronal plane at 1 mm and [address] DIAGNOSTIC QUALITY: Satisfactory FINDINGS: LUNG NODULES: None. LUNGS: COPD: Severity: Moderate to severe Fibrosis: Severity: Mild to moderate Lymph nodes: None. Other findings: None BILATERAL PLEURAL SPACE: Effusion: None Calcification: None Thickening: Mild bibasilar redemonstrated Pneumothorax: None HEART: Heart Size: Normal Coronary calcification: Mild Pericardial effusion: None OTHER FINDINGS: Upper abdomen: Beginning visualization of focal peripheral left lateral plaque mid abdominal aorta is axial images. Bony thorax: Exaggerated kyphosis with moderate multilevel spurring. Supraclavicular region: None. Other: Extremely dense fibroglandular tissue with scattered dystrophic locations throughout both merlyn sts remains present. IMPRESSION: No suspicious new nodules. Background moderate to advanced underlying emphysematous rios e redemonstrated. FOLLOW UP CT CHEST RECOMMENDATION: Annual low-dose lung screening CT CT LUNG RAD: Lung-Rad 1 Negative
== END | disposition home or self-care (01) ==
LOC: RADCTMAIN 12:25
PROVIDERS: ATTEND Family Medicine
DX: Z12.2 Encounter for screening for malignant neoplasm of respiratory organs (principal); F17.200 Nicotine dependence, unspecified, uncomplicated

== ENCOUNTER → 2019-04-12 | Outpatient (CLI) | payer MEDICARE ==
--- NOTE | 2019-04-13 14:39 | MM ---
Reason for exam: screening (asymptomatic). Last mammogram was performed 1 year and 3 months ago. History: Patient is postmenopausal. Cyst aspiration of the left breast. Excisional biopsy of the left breast. Excisional biopsy of the right breast. Took estrogen for 5 years 8 months. Physical Findings: A clinical breast exam by your physician is recommended on an annual basis and results should be correlated with mammographic findings. MG 3D Screening Mammo W/Cad Bilateral CC and MLO view(s) were taken. Prior study comparison: January 04, 2018, bilateral MG 3d screening mammo w/cad. June 20, 2015, bilateral MG screening mammo w CAD. The breast tissue is extremely dense which could obscure a lesion on mammography. Stable benign calcifications. There is no discrete abnormality. No significant changes when compared with prior studies. ASSESSMENT: Benign, BI-RAD 2 RECOMMENDATION: Routine screening mammogram of both breasts in 1 year.
== END | disposition home or self-care (01) ==
LOC: RADMAMWWP 13:22
PROVIDERS: ATTEND Family Medicine
DX: Z12.31 Encounter for screening mammogram for malignant neoplasm of breast (principal)
CPT/HCPCS: 77063; 77067

== ENCOUNTER → 2021-08-18 | Outpatient (CLI) | payer MEDICARE ==
--- NOTE | 2021-08-21 09:33 | MM ---
Reason for exam: screening (asymptomatic). Last mammogram was performed 2 years and 4 months ago. History: Patient is postmenopausal. Cyst aspiration of the left breast. Excisional biopsy of the left breast. Excisional biopsy of the right breast. Took estrogen for 5 years 8 months. Physical Findings: A clinical breast exam by your physician is recommended on an annual basis and results should be correlated with mammographic findings. MG 3D Screening Mammo W/Cad Bilateral CC and MLO view(s) were taken. Prior study comparison: April 12, 2019, bilateral MG 3d screening mammo w/cad. January 04, 2018, bilateral MG 3d screening mammo w/cad. The breast tissue is heterogeneously dense. This may lower the sensitivity of mammography. No significant changes when compared with prior studies. ASSESSMENT: Benign, BI-RAD 2 RECOMMENDATION: Routine screening mammogram of both breasts in 1 year.
== END | disposition home or self-care (01) ==
LOC: RADMAMWWP 16:21
PROVIDERS: ATTEND Family Medicine
DX: Z12.31 Encounter for screening mammogram for malignant neoplasm of breast (principal)
CPT/HCPCS: 77063; 77067

== ENCOUNTER → 2022-09-14 | Outpatient (CLI) | payer MEDICARE ==
--- NOTE | 2022-09-15 19:24 | MM ---
Reason for Exam: Screening (asymptomatic). Last screening mammogram was performed 12 month(s) ago. Patient History: Menarche at age 17. First Full-Term at age 19. Left ovary removed at age 48. Right ovary removed at age 48. Hysterectomy at age 48. Postmenopausal. Estrogen for 5 years, 8 months. Cyst Aspiration on the Left side. Excisional Biopsy on the Right side. Excisional Biopsy on the Left side. Risk Values: Romi 5 year model risk: 1.7%. NCI Lifetime model risk: 3.5%. Prior Study Comparison: 01/04/2018 Bilateral Screening Mammogram, [facility]. 04/12/2019 Bilateral Screening Mammogram, [facility]. 08/18/2021 Bilateral Screening Mammogram, [facility]. Tissue Density: The breast tissue is extremely dense which could obscure a lesion on mammography. Findings: Analyzed By CAD. Benign bilateral oil cyst calcifications. There is no suspicious group of microcalcifications or new suspicious mass in either breast. Overall Assessment: Benign, BI-RAD 2 Management: Screening Mammogram of both breasts in 1 year. Given the patient's extremely dense breast tissue, consider supplementary screening with breast ultrasound. Patient should continue monthly self-breast exams. A clinical breast exam by your physician is recommended on an annual basis. This exam should not preclude additional follow-up of suspicious palpable abnormalities. Note on Romi scores and lifetime risk: 1. A Romi score greater than 3% is considered moderate risk. If this is the case, consider specialist referral to assess eligibility for a risk reducing agent. 2. If overall lifetime risk for the development of breast cancer is 20% or higher, the patient may qualify for future screening with alternating mammogram and breast MRI. Electronically signed and approved by: Marco A Suarez M.D. Radiologist
== END | disposition home or self-care (01) ==
LOC: RADMAMWWP 13:25
PROVIDERS: ATTEND Family Medicine
DX: Z12.31 Encounter for screening mammogram for malignant neoplasm of breast (principal); Z78.0 Asymptomatic menopausal state
CPT/HCPCS: 77063; 77067

== ENCOUNTER → 2023-10-25 | Outpatient (CLI) | payer MEDICARE ==
--- NOTE | 2023-10-25 16:22 | CTL ---
EXAMINATION TYPE: CT Low Dose Lung DATE OF EXAM ORDERED: 10/25/2023 HISTORY: Nicotine dependence, current smoker, 50 pack-year history. Lung cancer screening CT DLP: 45.[address] CTDI: 1.3 mGy Automated exposure control for dose reduction was used. SCREENING VISIT: Follow-up COMPARISON: CT Low Dose Lung cancer screening 04/03/2019, CT chest 06/21/2016 TECHNIQUE: Low dose computed tomography scan was performed through the chest at 1 mm thick sections a nd reconstructed images in multiple planes at 1 mm and [address] DIAGNOSTIC QUALITY: Satisfactory FINDINGS: Nodules: Stable posterior left lower lobe pleural-based 5.1 mm pulmonary nodule dating back to at least 2017 ( series 6, image 21). No new or enlarging pulmonary nodules. LUNGS: COPD: Severity: Moderate to severe Fibrosis: Severity: Mild to moderate Lymph nodes: None Other findings: None BILATERAL PLEURAL SPACE: Effusion: None Calcification: None Thickening: Mild bibasilar redemonstrated Pneumothorax: None HEART: Heart Size: Normal Coronary Calcification: Small Pericardial Effusion: None OTHER FINDINGS: Upper abdomen: None Bony thorax: No acute process. Exaggerated kyphosis with moderate multilevel spurring. Supraclavicular region: None Other: Mild atherosclerotic calcification of the aorta and its branches. Bilateral dystrophic breast calcifications again noted. IMPRESSION: 1. Stable left lower lobe 5.1 mm pleural-based pulmonary nodule dating back to at least 2017. Conside red benign. No new or enlarging pulmonary nodules. 2. Moderate to advanced COPD changes. CT LUNG RAD AND CT CHEST RECOMMENDATION: Lung-Rad 2 Benign Appearance or Behavior: Continue annual sc reening with LDCT in 12 months. S Modifier (other clinically significant findings): None
== END | disposition home or self-care (01) ==
LOC: RADCTMAIN 15:30
PROVIDERS: ATTEND Family Medicine
DX: Z12.2 Encounter for screening for malignant neoplasm of respiratory organs (principal); J44.9 Chronic obstructive pulmonary disease, unspecified; R91.1 Solitary pulmonary nodule; F17.210 Nicotine dependence, cigarettes, uncomplicated
CPT/HCPCS: 71271